=== PATIENT | male | born 1995 | race Asian ===

== ENCOUNTER 2017-09-03 06:36 | Emergency (ER) | payer SELFPAY ==
[2017-09-03] MEDS ORDERED: Ibuprofen 800 MG TAB ONE (07:37)
== END 2017-09-03 07:40 | disposition home or self-care (01) ==
LOC: ERS 06:36
DX: J02.9 Acute pharyngitis, unspecified (principal); H10.9 Unspecified conjunctivitis
CPT/HCPCS: 87081; 87430; 99283

== ENCOUNTER 2018-11-16 13:45 | Emergency (ER) | payer OTHER, SELFPAY ==
[2018-11-16] MEDS ORDERED: Ondansetron ODT 4 MG TAB ONE (15:11)
[2018-11-16] MEDS ORDERED: Dexamethasone 10 MG/ML VIAL ONE (15:13)
== END 2018-11-16 16:09 | disposition home or self-care (01) ==
LOC: ERS 13:45
DX: B34.9 Viral infection, unspecified (principal)
CPT/HCPCS: 87081; 87430; 87804; 99283; J1100; Q0162

== ENCOUNTER 2019-06-06 15:07 | Emergency (ER) | payer OTHER ==
[2019-06-06] MEDS ORDERED: Dexamethasone 4 mg/ml Vial ONE (16:20)
== END 2019-06-06 16:22 | disposition home or self-care (01) ==
LOC: ERS 15:07
DX: J02.9 Acute pharyngitis, unspecified (principal)
CPT/HCPCS: 87081; 87430; 99283; J1100

== ENCOUNTER 2019-07-02 13:40 | Emergency (ER) | payer OTHER ==
[2019-07-02] MEDS ORDERED: Acetaminophen 500 MG TAB ONE (14:04)
[2019-07-02] MEDS ORDERED: Ondansetron PF 4 MG/2 ML Vial ONE (14:04)
--- NOTE | 2019-07-02 15:02 | CT ---
Exam: Head CT without contrast HISTORY: Headache. Blurred vision. Status post head injury. Patient slipped and hit right side of his head. COMPARISON: none FINDINGS: Hemorrhage: No intraparenchymal hemorrhage or extra-axial hematoma. Brain parenchyma: Cortical jackson-white matter differentiation is preserved. No mass effect or midline shift. Basilar cisterns are patent. Ventricular system: Ventricles and sulci are patent and symmetric. Calvarium: Intact. Sinuses and mastoid air cells: Adequate aeration. IMPRESSION: No acute intracranial posttraumatic sequelae.
== END 2019-07-02 17:47 | disposition home or self-care (01) ==
LOC: ERS 13:40
DX: S06.9X9A Unspecified intracranial injury with loss of consciousness of unspecified duration, initial encounter (principal); F07.81 Postconcussional syndrome; W01.0XXA Fall on same level from slipping, tripping and stumbling without subsequent striking against object, initial encounter
CPT/HCPCS: 70450; 96361; 96374; J2405

== ENCOUNTER 2020-09-01 17:19 | Emergency (ER) | payer SELFPAY | END 2020-09-01 19:36 | disposition home or self-care (01) | LOC: ERS 17:19 | DX: Z53.21 Procedure and treatment not carried out due to patient leaving prior to being seen by health care provider (principal) ==